=== PATIENT | female | born 1950 | race Caucasian/White ===

== ENCOUNTER 2023-08-14 08:55 | Day surgery (SDC) | payer MEDICARE, OTHER, SELFPAY ==
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
[2023-08-14] VITALS (7 sets, daily range): BP systolic 107–147; BP diastolic 59–93; PULSE 50–61; RESP 16–18; TEMP 36–36.8; O2SAT 93–100; BMI 31.8
--- NOTE | 2023-08-14 09:04 | EKG12_ITS ---
Test Reason : PRE OP Blood Pressure : / mmHG Vent. Rate : 056 BPM Atrial Rate : 056 BPM P-R Int : 168 ms QRS Dur : 074 ms QT Int : 440 ms P-R-T Axes : 055 000 039 degrees QTc Int : 424 ms Sinus bradycardia Otherwise normal ECG No previous ECGs available Confirmed by MAYRA DEVINE, ADRIANO ([id number]), state editor MARILEE AREVALO ([id number]) on 08/18/2023 9:31:39 AM Referred By: Jennifer Murrell Confirmed By:ADRIANO NUNEZ MD
[2023-08-14] MEDS: Lactated Ringers 1,000 ML 15 ML IV (09:36)
[2023-08-14 09:41] LABS: Hematocrit 39.9 % (37-47); Hemoglobin 12.9 g/dL (12.0-15.0); Mean Corp Hgb Conc 32.3 g/dL (32-36); Mean Corpuscular Hgb 29.3 pg (27.0-32.0); Mean Corpuscular Volume 90.7 fL (81-99); Mean Platelet Vol. 9.9 fl (6.2-12.0); Platelet Count 228 K/mm3 (150-450); RBC Distribution Width CV 12.2 % (11.6-14.6); RBC Distribution Width SD 41.1 fl (35.1-43.9); White Blood Count 6.1 K/mm3 (4.4-11.0)
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
--- NOTE | 2023-08-14 10:00 | PCM.DC ---
Discharge Instructions Diet Discharge Diet: No restrictions Activity May resume sexual activity in: 1 week Dressing / Incision Call your doctor if you observe: Fever of 101 or Higher, Inability to urinate, Using more than 1 pad per hour and Uncontrolled pain Follow Up Care Please Follow Up With: Jennifer Murrell MD When: 1-2 weeks post OP if you need an appointment please call [phone] Test Results: Test results from this visit will be discussed in further detail at your follow-up appointment, if applicable. Discharge Plan Admission Attending Provider: Jennifer Murrell Primary Care Provider: Ezequiel Aguilar Instructions Print Language: Montenegrin Discharge Orders/Prescriptions Prescriptions: No Action NK Referrals / Follow Up: Ezequiel Aguilar MD [Primary Care Provider] - Disposition Disposition (needs filled in before D/C Order can be placed): Home, Self Care
--- NOTE | 2023-08-14 10:00 | PCM.OPRPT ---
Report of Operation Date of Procedure: 08/14/23 Pre-Operative Diagnosis: PMB, Bicornuate uterus Post-Operative Diagnosis: Same, endometrial polyp Surgery/Procedure Performed:: Hysteroscopy, D&C, polypectomy Description of Surgical Findings:: Polypoid appearing tissue at right tubal ostia - Surgeon: Jennifer Murrell inspector final assembly electrical: None Type of Anesthesia: MAC Special Medications: none Specimen's removed: Endometrial curettings and endometrial polylp Drains: none Estimated Blood Loss (mL): 10cc Fluids Replaced: 800 Description of Procedure: Informed consent was obtained the patient was taken the operating room she was placed in supine position. She was given anesthesia. She was then placed in the [facility] where she was prepped and draped in the normal sterile fashion. bladder drained prior to start of procedure. At this time the weighted speculum was placed in the posterior fornix of vagina. Single-tooth tenaculum was used to gently grasp the posterior lip the cervix. Cervix was flush with vagina. At this time the uterine cavity was sounded to approximately 7cm. Gentle dilatation was performed once adequate dilatation of the cervix was achieved the hysteroscope using normal saline as a distention medium was placed. Tubal ostia visualized. Appeared to be two small polyps at the right tuval ostial- cavity appeared to be slightly bicornuate. Symphion resecting device used to obtain endometrial curettings and to perform polypectomy and obtain endometrial curettings. Tissue will be sent to pathology for evaluation. Tenaculum removed. Good hemostasis. Instrument, lap count correct x 2. Vaginal Sweep was negative. fluid deficit 600cc. Grafts/Implants Used: none Procedure Start Time: 10:13 Procedure Stop Time: 10:32 Complications none Admit VTE Documentation VTE Present on Admission: Yes VTE Mechan Device Prophylaxis: SCD's VTE Pharm Prophylaxis ordered?: No Reason prophylaxis not ordered:: Procedure Not Indicated
[2023-08-14 10:08] LABS: Anion Gap 7 (5-15); BUN 10 mg/dL (7-18); BUN/Creat Ratio 11.8 RATIO (10-20); Calcium,Total 9.1 mg/dL (8.5-10.1); Chloride 110 mmol/L (98-107); Creatinine, Serum 0.85 mg/dL (0.55-1.02); EST Glomerular Filtration Rate 71 mL/min (>60); Est Glom Filt Rate - Afr Amer 85 mL/min (>60); Estimated Creatinine Clearance 61.43 ml/min; Glucose 97 mg/dL (74-106); Sodium Level 141 mmol/L (136-145)
--- NOTE | 2023-08-14 10:45 | EMB_PTH ---
PATIENT: AASHISH BUSH LOC: [facility] U#:[id number] AGE/SX: 73/F ROOM: RE08/14/[address]: Dr. Jennifer Murrell, MDDOB: 1950 BED: DIS: 08/14/2023 SPEC #: [id number] RECD: 08/14/23 10:51 STATUS: PRITESH COYLE #: [id number] YURIY: 08/14/23 10:[address]: Jennifer Murrell DEPT: SURGICAL PATHOLOGY RECD BY: Dejuan Mohr ENTERED: 08/14/23 12:33 SP TYPE: ENDOM BX/C SINDY DR: Dr. Ezequiel Aguilar MD Tissues: Endometrium, NOS Procedures: Surgery Specimen Level IV HEADER OPERATION: Hysteroscopy, D&C, symphion, polypectomy PRE-OP DIAGNOSIS: Postmenopausal bleeding TISSUE SUBMITTED: Endometrial shavings and polyps MICROSCOPIC DIAGNOSIS Endometrium curettings and polyp: Consistent with benign cystic atrophy. Fragments of benign myometrial tissue. MAXINE/ 08/17/2023 MICROSCOPIC DESCRIPTION Slides are reviewed. GROSS DESCRIPTION Received in fixative is one container labeled with the patient's name and designated Endometrial shavings and polyp. The specimen consists of multiple irregular fragments of segundo soft tissue that in aggregate measure 2.5 x 2.0 x 0.2 cm. The specimen is totally submitted in one cassette. MARTY/ 08/14/2023 TC:5 CPT:[id number]
--- NOTE | 2023-08-14 10:49 | PCM.POST.ANE ---
Anesthesia: Postop Eval I Current Vital Signs Temperature: 96.8 F Pulse Rate: 61 Blood Pressure: 107/70 Respiratory Rate: 18 Pulse Ox: 93 Oxygen Delivery Method: Room Air Assessment Airway patent: Yes Spontaneous unlabored respirations: Yes Mental status: Awake nausea: No Vomiting: No Anesthesia Complication: No Fluid Hydration Crystalloid volume administer (ml): 800 Total IV fluid infused: 800 Progress Note Anesthesia document: Postop Eval 1 completed: Yes
[2023-08-14] MEDS: Acetaminophen 500 MG Tablet PO (11:40)
--- NOTE | 2023-08-14 12:55 | POSTOPAN2_ITS ---
Anesthesia Postop Eval I Sum Postop Eval Completion status Anesthesia document: Postop Eval 1 completed: Yes Anesthesia Postop Eval I Summary Anesthesia Postop Eval I Summary: Anesthesia Postop Eval I: Assessment Summary Airway patent Yes 08/14/23 10:50 CABLE [email or web address] Spontaneous unlabored Yes 08/14/23 10:50 CABLE [email or web address].CSIR respirations Mental status Awake 08/14/23 10:50 CABLE [email or web address] nausea No 08/14/23 10:50 CABLE [email or web address].CSIR Vomiting No 08/14/23 10:50 CABLE [email or web address] Anesthesia Postop Eval I: Fluid Summary Crystalloid volume administer 800 08/14/23 10:50 CABLE [email or web address].CSIR (ml) Colloids volume administered ( ml) Blood Product volume administered (ml) Total IV fluid infused 800 08/14/23 10:50 CABLE [email or web address].CSIR Anesthesia Postop Eval I: Summary Notes Anesthesia Complication No 08/14/23 10:50 CABLE [email or web address].CSIR Anesthesia Complication Comment: Post-operative progress note Anesthesia: Postop Eval II Evaluation Mental status: Awake Pain Level: 0 nausea: No Vomiting: No Complications Anesthesia Complication: No
--- NOTE | 2023-08-14 12:55 | PCM.POSTANE2 ---
Anesthesia Postop Eval I Sum Postop Eval Completion status Anesthesia document: Postop Eval 1 completed: Yes Anesthesia Postop Eval I Summary Anesthesia Postop Eval I Summary: Anesthesia Postop Eval I: Assessment Summary Airway patent Yes 08/14/23 10:50 SWITCHMAN [email or web address] Spontaneous unlabored Yes 08/14/23 10:50 SWITCHMAN SUPERVISOR.CSIR respirations Mental status Awake 08/14/23 10:50 SWITCHMAN [email or web address] nausea No 08/14/23 10:50 SWITCHMAN SUPERVISOR.CSIR Vomiting No 08/14/23 10:50 SWITCHMAN SUPERVISOR.CSIR Anesthesia Postop Eval I: Fluid Summary Crystalloid volume administer 800 08/14/23 10:50 SWITCHMAN SUPERVISOR.CSIR (ml) Colloids volume administered ( ml) Blood Product volume administered (ml) Total IV fluid infused 800 08/14/23 10:50 SWITCHMAN SUPERVISOR.CSIR Anesthesia Postop Eval I: Summary Notes Anesthesia Complication No 08/14/23 10:50 SWITCHMAN SUPERVISOR.CSIR Anesthesia Complication Comment: Post-operative progress note Anesthesia: Postop Eval II Evaluation Mental status: Awake Pain Level: 0 nausea: No Vomiting: No Complications Anesthesia Complication: No
== END 2023-08-14 12:08 | disposition home or self-care (01) ==
LOC: SDC 08:56 → AC 08:58
PROVIDERS: PCP Family Medicine; Referring Provider Obstetrics & Gynecology; Visit Provider Obstetrics & Gynecology
PROC: 0UB98ZZ Excision of Uterus, Via Natural or Artificial Opening Endoscopic (ICD-10-PCS; CPT 58558; principal; 2023-08-14 10:30)
DX: N85.8 Other specified noninflammatory disorders of uterus (principal); N95.0 Postmenopausal bleeding
CPT/HCPCS: 58558; 00952; 80048; 85027; 88305; 93005; J7120; J2405